=== PATIENT | female | born 1970 | race African-American/Black ===

== ENCOUNTER 2018-09-24 09:02 | Emergency (ER) | payer SELFPAY ==
[2018-09-24] MEDS ORDERED: Ketorolac Tromethamine 30 MG/ML VIAL ONE (09:27)
[2018-09-24 09:46] LABS: #Lymphocytes 1.6 thou/uL (1.20-3.40); #Monocytes 0.7 thou/uL (0.11-0.59); #Neutrophils 3.5 thou/uL (1.40-6.50); %Basophils 0.6 % (0.0-1.0); %Eosinophils 0.8 % (0.0-10.0); %Lymphocytes 27.2 % (21.0-51.0); %Monocytes 12.4 % (0.0-10.0); Hemoglobin 5.8 g/dL (12.0-16.0); Mean Corpuscular HGB CONC 29.3 g/dL (32.0-36.0); Mean Corpuscular Hemoglobin 20.2 pg (27.0-31.0); Mean Corpuscular Volume 69.2 fL (78.0-98.0); Mean Platelet Volume 10.6 fL (7.4-10.4); Platelet Count 229 thou/uL (130-400); RBC Distribution Width 17.9 % (11.5-14.5); Red Blood Cell (RBC) Count 2.85 mill/uL (4.20-5.40); White Blood Cell (WBC) Count 5.9 thou/uL (4.8-10.8)
[2018-09-24 10:08] LABS: Hypochromia MARKED = >30 cells (100X) (0-5/hpf); MDiff Complete? YES; Microcytosis MARKED = >30 cells (100X) (0-5/hpf); Ovalocytes MODERATE= 6-15 cells (100X) (0-1/hpf); Polychromasia SLIGHT = 2-3 cells (100X) (0-2/hpf); Reflex for Review?? YES; Schistocytes SLIGHT = 2-5 cells (100X) (0-1/hpf)
--- NOTE | 2018-09-24 11:47 | ULT ---
US Pelvic W Doppler History: [Bleeding. History of fibroids.] Comparison: None. Findings: Real-time grayscale, color, and spectral analysis of the pelvis were performed transabdomin al approach. The myometrium is severely heterogeneous. The endometrium is obscured. There is a posterior fundal fi broid measuring up to 3.5 cm. There is another fibroid in the fundus measuring up to 3.3 cm. Partiall y calcified fibroid measuring up to 4 cm. Both ovaries are normal with adequate vascular flow. No free fluid within the pelvis. Impression: 1. Multiple uterine fibroids and different stages of degeneration. 2. Very heterogeneous echotexture to the uterus with obscuration of the junctional zone may reflect u nderlying adenomyosis. 3. Normal appearance of both ovaries. Pelvic MRI may be beneficial.
[2018-09-24 14:18] LABS: Bilirubin Negative (Negative); Blood, Urine Small (Negative); Clarity TURBID (Clear); Glucose, Urine (Dipstick) Negative (Negative); Leukocyte Negative (Negative); Nitrite Negative (Negative); Protein, Urine (Dipstick) Trace mg/dL (Neg-Trace); Specific Gravity, Urine 1.023 (1.002-1.036); Urobilinogen 0.2 mg/dL (0.2-1.0)
[2018-09-24 14:21] LABS: Bacteria/HPF None Seen HPF (None Seen)
[2018-09-24 14:22] LABS: Pathc Cast-AUWi Flag 4.48 (0-2.49); Pregnancy Test - Urine (BHCG) Negative (Negative); Pregu Control Background? CLEAR/WHITE (CLR/WHITE); Pregu Control Bar Appear? YES (CONTROL BAR); Specific Gravity 1.023 (1.002-1.036)
[2018-09-24 14:37] LABS: Other Casts/LPF None Seen LPF (0-3 Hyaline)
[2018-09-24 16:58] LABS: #Basophils 0.1 thou/uL (0.0-0.2); #Lymphocytes 1.4 thou/uL (1.20-3.40); #Monocytes 0.7 thou/uL (0.11-0.59); #Neutrophils 2.6 thou/uL (1.40-6.50); %Basophils 1.2 % (0.0-1.0); %Eosinophils 0.4 % (0.0-10.0); %Lymphocytes 29.4 % (21.0-51.0); %Monocytes 14.1 % (0.0-10.0); %Neutrophils 54.9 % (42.0-75.0); Hemoglobin 7.5 g/dL (12.0-16.0); Mean Corpuscular HGB CONC 31.1 g/dL (32.0-36.0); Mean Corpuscular Volume 73.8 fL (78.0-98.0); Mean Platelet Volume 10.4 fL (7.4-10.4); Platelet Count 230 thou/uL (130-400); RBC Distribution Width 20.3 % (11.5-14.5); Red Blood Cell (RBC) Count 3.28 mill/uL (4.20-5.40); White Blood Cell (WBC) Count 4.7 thou/uL (4.8-10.8)
[2018-09-24 17:13] LABS: Anisocytosis MODERATE=16-30 cells (100X) (0-5/hpf); Hypochromia SLIGHT = 6-15 cells (100X) (0-5/hpf); MDiff Complete? YES; Microcytosis SLIGHT = 6-15 cells (100X) (0-5/hpf); Ovalocytes SLIGHT = 2-5 cells (100X) (0-1/hpf); Platelet Morphology Comment Appears Adequate; Polychromasia SLIGHT = 2-3 cells (100X) (0-2/hpf); Schistocytes SLIGHT = 2-5 cells (100X) (0-1/hpf); Spherocytes SLIGHT = 1-5 cells (100X) (None Seen); Target Cells SLIGHT = 2-5 cells (100X) (0-1/hpf)
== END 2018-09-24 18:06 | disposition home or self-care (01) ==
LOC: ERS 09:02
DX: D62 Acute posthemorrhagic anemia (principal); N92.0 Excessive and frequent menstruation with regular cycle; D25.9 Leiomyoma of uterus, unspecified
CPT/HCPCS: 36415; 36430; 76856; 81003; 81015; 81025; 85025; 85060; 86850; 86900; 86901; 93976; 96372; J1885; P9016

== ENCOUNTER 2018-10-03 19:16 | Emergency (ER) | payer SELFPAY ==
[2018-10-03 19:56] LABS: #Basophils 0.1 thou/uL (0.0-0.2); #Lymphocytes 1.2 thou/uL (1.20-3.40); #Monocytes 0.4 thou/uL (0.11-0.59); #Neutrophils 2.9 thou/uL (1.40-6.50); %Basophils 1.3 % (0.0-1.0); %Eosinophils 0.6 % (0.0-10.0); %Lymphocytes 26.5 % (21.0-51.0); %Monocytes 8.4 % (0.0-10.0); %Neutrophils 63.2 % (42.0-75.0); Hemoglobin 7.9 g/dL (12.0-16.0); Mean Corpuscular HGB CONC 30.2 g/dL (32.0-36.0); Mean Corpuscular Hemoglobin 22.4 pg (27.0-31.0); Mean Corpuscular Volume 74.2 fL (78.0-98.0); Mean Platelet Volume 10.9 fL (7.4-10.4); Platelet Count 268 thou/uL (130-400); RBC Distribution Width 21.9 % (11.5-14.5); Red Blood Cell (RBC) Count 3.55 mill/uL (4.20-5.40); White Blood Cell (WBC) Count 4.6 thou/uL (4.8-10.8)
[2018-10-03 21:12] LABS: Pregnancy Test - Urine (BHCG) Negative (Negative); Pregu Control Background? CLEAR/WHITE (CLR/WHITE); Pregu Control Bar Appear? YES (CONTROL BAR); Specific Gravity 1.013 (1.002-1.036)
[2018-10-03] MEDS ORDERED: Estrogens, Conjugated 25 mg Vial IM SCH (21:30)
[2018-10-03] MEDS ORDERED: Sterile Water 10 ML ONE (21:47)
== END 2018-10-03 22:52 | disposition home or self-care (01) ==
LOC: ERS 19:16
DX: N93.9 Abnormal uterine and vaginal bleeding, unspecified (principal); D50.0 Iron deficiency anemia secondary to blood loss (chronic); F41.9 Anxiety disorder, unspecified; I10 Essential (primary) hypertension; Z79.899 Other long term (current) drug therapy
CPT/HCPCS: 36415; 81025; 85025; 86850; 86900; 86901; 96372; A4216; J1410

== ENCOUNTER 2019-01-29 13:37 | Emergency (ER) | payer SELFPAY ==
[2019-01-29 15:10] LABS: #Monocytes 0.4 thou/uL (0.11-0.59); #Neutrophils 1.8 thou/uL (1.40-6.50); %Basophils 0.7 % (0.0-1.0); %Eosinophils 0.7 % (0.0-10.0); %Lymphocytes 31.4 % (21.0-51.0); %Neutrophils 56.3 % (42.0-75.0); Mean Corpuscular HGB CONC 29.2 g/dL (32.0-36.0); Mean Corpuscular Hemoglobin 18.9 pg (27.0-31.0); Mean Corpuscular Volume 64.7 fL (78.0-98.0); Mean Platelet Volume 7.4 fL (7.4-10.4); Platelet Count 249 thou/uL (130-400); RBC Distribution Width 20.4 % (11.5-14.5); Red Blood Cell (RBC) Count 3.72 mill/uL (4.20-5.40); White Blood Cell (WBC) Count 3.3 thou/uL (4.8-10.8)
[2019-01-29 15:22] LABS: ALT (SGPT) Less than 7 U/L (8-55); AST (SGOT) 10 U/L (5-34); Albumin 4.3 g/dL (3.5-5.0); Alkaline Phosphatase 55 U/L (40-150); Anion Gap 12 mmol/L (10-20); BUN (Urea Nitrogen) 10 mg/dL (7.0-18.7); Bilirubin, Total 0.5 mg/dL (0.2-1.2); Calc. Creatinine Clearance 0 mL/min (70-130); Calcium 9.6 mg/dL (7.8-10.44); Carbon Dioxide 25 mmol/L (22-29); Chloride 104 mmol/L (98-107); Estimated GFR-MDRD 78; Globulin 3.6 g/dL (2.4-3.5); Glucose 105 mg/dL (70-105); Potassium 3.7 mmol/L (3.5-5.1); Protein, Total 7.9 g/dL (6.0-8.3); Sodium 137 mmol/L (136-145)
[2019-01-29 15:29] LABS: Anisocytosis MODERATE=16-30 cells (100X) (0-5/hpf); Hypochromia MODERATE=16-30 cells (100X) (0-5/hpf); MDiff Complete? YES; Microcytosis SLIGHT = 6-15 cells (100X) (0-5/hpf); Ovalocytes SLIGHT = 2-5 cells (100X) (0-1/hpf); Platelet Morphology Comment Appears Adequate; Poikilocytosis SLIGHT = 6-15 cells (100X) (0-5/hpf); Polychromasia SLIGHT = 2-3 cells (100X) (0-2/hpf); Reflex for Review?? NO; Schistocytes SLIGHT = 2-5 cells (100X) (0-1/hpf); Target Cells SLIGHT = 2-5 cells (100X) (0-1/hpf)
[2019-01-29 15:40] LABS: Free T4 (Free Thyroxine) 0.96 ng/dL (0.70-1.48); Thyroid Stimulating Hormone 0.8131 uIU/mL (0.35-4.94)
[2019-01-29] MEDS ORDERED: ISOVUE-370 76%-LOCM 1 ML ONE (15:46)
--- NOTE | 2019-01-29 16:32 | CT ---
Exam: Postcontrast soft tissue neck CT HISTORY: Dysphagia x2 to 3 days. Throat pain. Symptoms are exacerbated when eating. Patient feels a l ump in the right aspect of the throat. FINDINGS: Visualized brain parenchyma and orbits are unremarkable Adequate aeration of the visualized paranasal sinuses and mastoid air cells Aerodigestive tract is patent. No mucosal abnormality. Epiglottis has a normal caliber. Preepiglottic fat is preserved. Nonspecific mild fullness of the palatine tonsils. Symmetric attenuation of the parotid and submandibular glands Symmetric attenuation of the sternocleidomastoid muscles Thyroid gland is Unremarkable. Grossly the great vessels of the neck are patent. No evidence of lymphadenopathy by size criteria. Nonspecific right level 5 lymph node measuring 0.7 x 0.9 cm. Cervical spine vertebral body height is maintained. No fracture. 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 Upper mediastinum and lung ap ices are unremarkable IMPRESSION: Unremarkable postcontrast soft tissue neck CT. Nonspecific mild fullness of the palatine tonsils. No evidence of peritonsillar abscess. Direct visualization is recommended. Transcribed Date/Time: 01/29/2019 6:26 PM
== END 2019-01-29 17:21 | disposition home or self-care (01) ==
LOC: ERS 13:37
DX: R59.0 Localized enlarged lymph nodes (principal); I10 Essential (primary) hypertension; D64.9 Anemia, unspecified; F41.9 Anxiety disorder, unspecified; Z79.899 Other long term (current) drug therapy
CPT/HCPCS: 36415; 70491; 80053; 84439; 84443; 85025

== ENCOUNTER 2019-03-28 12:44 | Emergency (ER) | payer SELFPAY ==
[2019-03-28] MEDS ORDERED: Dexamethasone 10 MG/ML VIAL ONE (13:05)
== END 2019-03-28 13:12 | disposition home or self-care (01) ==
LOC: ERS 12:44
DX: J00 Acute nasopharyngitis [common cold] (principal); F41.9 Anxiety disorder, unspecified; I10 Essential (primary) hypertension; D64.9 Anemia, unspecified; Z79.899 Other long term (current) drug therapy
CPT/HCPCS: 99283; J1100

== ENCOUNTER 2019-04-26 09:11 | Emergency (ER) | payer SELFPAY | END 2019-04-26 11:21 | disposition home or self-care (01) | LOC: ERS 09:11 | DX: K21.9 Gastro-esophageal reflux disease without esophagitis (principal); F41.9 Anxiety disorder, unspecified; I10 Essential (primary) hypertension; D64.9 Anemia, unspecified; Z79.899 Other long term (current) drug therapy | CPT/HCPCS: 99282 ==

== ENCOUNTER 2019-11-27 02:30 | Outpatient (CLI) | payer OTHER, SELFPAY ==
[2019-11-28 12:52] LABS: SARS-CoV-2 MS2 Positive; SARS-CoV-2 N Gene Negative; SARS-CoV-2 S Gene Negative; SARS-CoV-2 orf1ab Negative
== END 2019-11-27 02:31 | disposition home or self-care (01) ==
LOC: ERS 02:30 → SCSLAB 02:31
PROVIDERS: ATTEND Otolaryngology Plastic Surgery within the Head & Neck
DX: Z01.812 Encounter for preprocedural laboratory examination (principal); Z11.59 Encounter for screening for other viral diseases; R13.10 Dysphagia, unspecified
CPT/HCPCS: 87635; U0003

== ENCOUNTER 2019-12-01 09:04 | Outpatient (CLI) | payer OTHER ==
--- NOTE | 2019-12-01 10:53 | RAD ---
MODIFIED BARIUM SWALLOW IN PRESENCE OF SPEECH THERAPIST: HISTORY: Dysphagia, feeding difficulties FINDINGS: No laryngeal penetration or aspiration is seen. No persistent pooling of contrast is seen in the valleculae or piriform sinuses. Please see recommendations of the speech therapist for further management.
== END 2019-12-01 09:05 | disposition home or self-care (01) ==
LOC: RAD 09:04
PROVIDERS: ATTEND Otolaryngology Plastic Surgery within the Head & Neck
DX: R13.10 Dysphagia, unspecified (principal); R63.3 Feeding difficulties
CPT/HCPCS: 74230